=== PATIENT | female | born 1975 | race American Indian/Alaskan Native ===

== ENCOUNTER 2016-10-19 09:49 | Emergency (ER) | payer BC ==
[2016-10-19 09:49] VITALS: BMI 29.7
[2016-10-19 10:51] VITALS: TEMP 98.2
[2016-10-19] MEDS ORDERED: Sodium Chloride 0.9% 1,000 ML IV STA (10:59)
[2016-10-19 11:17] LABS: ADD MANUAL DIFF? NO
[2016-10-19 11:23] VITALS: RESP 18
[2016-10-19 11:25] LABS: URINE BILIRUBIN NEGATIVE (NEGATIVE); URINE BLOOD LARGE (NEGATIVE); URINE GLUCOSE (UA) NEGATIVE (NEGATIVE); URINE KETONE NEGATIVE (NEGATIVE); URINE LEUKOCYTE ESTERASE NEGATIVE Leu/uL (NEGATIVE); URINE PROTEIN TRACE mg/dL (<30 mg/dL); URINE UROBILINOGEN 0.2 E.U./dL (<1 E.U./dL)
[2016-10-19 11:26] LABS: URINE APPEARANCE CLEAR (CLEAR); URINE COLOR YELLOW (YELLOW)
[2016-10-19 11:28] LABS: BASO # 0.03 K/mm3 (0.0-2.0); BASO % 0.5 % (0.0-3.0); EOS # 0.1 (0.0-0.7); EOS % 0.9 % (1.5-5.0); GRAN # 4.53 (1.4-6.5); GRAN % 70.6 % (50.0-68.0); LYMPH # 1.4 (1.2-3.4); MEAN CELL VOLUME 93.1 fL (80.0-105.0); MEAN CORPUSCULAR HEMOGLOBIN 31.1 pg (25.0-35.0); MEAN CORPUSCULAR HGB CONC 33.4 g/dl (31.0-37.0); MEAN PLATELET VOLUME 9.9 fl (7.0-11.0); MONO # 0.5 (0.1-0.6); PLATELET COUNT 277 10^3/uL (120.0-450.0); RED CELL DISTRIBUTION WIDTH 13.1 % (11.5-14.5); WHITE BLOOD COUNT 6.4 10^3/ul (4.5-11.0)
--- NOTE | 2016-10-19 11:34 | ED PDOC ---
Arrival/HPI - General Chief Complaint: Cough, Cold, Congestion Time Seen by Provider: 10/19/16 09:55 Historian: Patient - History of Present Illness Narrative History of Present Illness (Text): 10/19/16 11:31 41 year old female whose past medical history includes fibroids presents to the emergency department with suprapubic pain described as cramping today. She state she had a routine appointment with her [facility] later today but could not wait due to the pain. Denies nausea, vomiting, dysuria, or fever. Patient also reports pinkish vaginal discharge and admits to unprotected sex with one partner. LMP 10/01. PMD: Dr. Monge Time/Duration: 24 hours Symptom Onset: Gradual Symptom Course: Unchanged Modifying Factors (Text): None Associated Symptoms (Text): None Past Medical History - Provider Review Nursing Documentation Reviewed: Yes - Infectious Disease Hx of Infectious Diseases: None - Tetanus Immunization Tetanus Immunization: Unknown - Past Medical History Past Medical History: No Previous - Cardiac Hx Cardiac Disorders: No - Pulmonary Hx Respiratory Disorders: No - Neurological Hx Neurological Disorder: No - HEENT Hx HEENT Disorder: No - Renal Hx Renal Disorder: No - Endocrine/Metabolic Hx Endocrine Disorders: No - Hematological/Oncological Hx Blood Disorders: No - Integumentary Hx Dermatological Disorder: No - Musculoskeletal/Rheumatological Hx Musculoskeletal Disorders: No - Gastrointestinal Hx Gastrointestinal Disorders: No - Genitourinary/Gynecological Other/Comment: FIBROIDS - Psychiatric Hx Psychophysiologic Disorder: No Hx Substance Use: No - Surgical History Other/Comment: FIBROIDECTOMY - Anesthesia Hx Anesthesia: No Hx Anesthesia Reactions: No Hx Malignant Hyperthermia: No - Suicidal Assessment Feels Threatened In Home Enviroment: No Family/Social History - Physician Review Nursing Documentation Reviewed: Yes Family/Social History: Unknown Family HX Smoking Status: Never Smoked Hx Alcohol Use: Yes Frequency of alcohol use: Socially Hx Substance Use: No Hx Substance Use Treatment: No Allergies/Home Meds Allergies/Adverse Reactions: Allergies No Known Allergies Allergy (Verified 10/19/16 10:39) Home Medications: Home Meds Medication Instructions Recorded Confirmed Naproxen [Naprosyn] 500 mg PO TID PRN 10/19/16 10/19/16 Review of Systems - Physician Review All systems were reviewed & negative as marked: Yes - Review of Systems Constitutional: absent: Fevers Gastrointestinal: Abdominal Pain (suprapubic). absent: Nausea, Vomiting Genitourinary Female: Vaginal Discharge. absent: Dysuria, Frequency Physical Exam Vital Signs Reviewed: Yes Vital Signs Temp Pulse Resp BP Pulse Ox 10/19/16 13:26 66 18 106/65 97 10/19/16 12:32 68 18 107/68 97 10/19/16 11:22 70 18 105/71 100 10/19/16 10:44 98.2 F 68 16 103/69 100 Temperature: Afebrile Blood Pressure: Normal Pulse: Regular Respiratory Rate: Normal Appearance: Positive for: Well-Appearing, Non-Toxic, Comfortable Pain Distress: None Mental Status: Positive for: Alert and Oriented X 3 - Systems Exam Head: Present: Atraumatic, Normocephalic Pupils: Present: PERRL Extroacular Muscles: Present: EOMI Conjunctiva: Present: Normal Mouth: Present: Moist Mucous Membranes Neck: Present: Normal Range of Motion Respiratory/Chest: Present: Clear to Auscultation, Good Air Exchange. No: Respiratory Distress, Accessory Muscle Use Cardiovascular: Present: Regular Rate and Rhythm, Normal S1, S2. No: Murmurs Abdomen: Present: Normal Bowel Sounds. No: Tenderness, Distention, Peritoneal Signs Back: Present: Normal Inspection Upper Extremity: Present: Normal Inspection. No: Cyanosis, Edema Lower Extremity: Present: Normal Inspection. No: Edema Neurological: Present: GCS=15, CN II-XII Intact, Speech Normal Skin: Present: Warm, Dry, Normal Color. No: Rashes Psychiatric: Present: Alert, Oriented x 3, Normal Insight, Normal Concentration Medical Decision Making ED Course and Treatment: Impression: 41 year old female whose past medical history includes fibroids presents to the emergency department with suprapubic pain described as cramping today. Differential Diagnosis include but are not limited to: Plan: -- Toradol -- IV fluids -- Labs -- Reassess and disposition Prior Visits: Notes and results from previous visits were reviewed. Patient last seen in ED on 04/25/16 for abdominal pain and discharged home. Progress Notes: - Lab Interpretations Lab Results: 10/19/16 11:08 10/19/16 11:08 Lab Results 10/19/16 11:08: Beta HCG, Quant < 2.39 10/19/16 11:08: Sodium 139, Potassium 3.5 L, Chloride 104, Carbon Dioxide 27, Anion Gap 12, BUN 11, Creatinine 0.8, Est GFR ( Amer) > 60, Est GFR (Non- Af Amer) > 60, Random Glucose 91, Calcium 9.3, Total Bilirubin 1.5 H, AST 21, ALT 23, Alkaline Phosphatase 68, Total Protein 8.6 H, Albumin 4.3, Globulin 4.3 , Albumin/Globulin Ratio 1.0 L, Lipase 40 10/19/16 11:08: WBC 6.4, RBC 3.76, Hgb 11.7 L, Hct 35.0 L, MCV 93.1, MCH 31.1, MCHC 33.4, RDW 13.1, Plt Count 277, MPV 9.9, Gran % 70.6 H, Lymph % (Auto) 21.0 L, [place] % (Auto) 7.0 H, Eos % (Auto) 0.9 L, Baso % (Auto) 0.5, Gran # 4.53, Lymph # 1.4, [place] # 0.5, Eos # 0.1, Baso # 0.03 10/19/16 09:32: Urine Color Yellow, Urine Appearance Clear, Urine pH 6.0, Ur Specific [place] >= 1.030, Urine Protein Trace H, Urine Glucose (UA) Negative, Urine Ketones Negative, Urine Blood Large H, Urine Nitrate Negative, Urine Bilirubin Negative, Urine Urobilinogen 0.2, Ur Leukocyte Esterase Negative, Urine RBC 15 - 20, Urine WBC 1 - 3, Ur Epithelial Cells Many, Amorphous Sediment Few, Urine Bacteria Many, Urine Other Fiber, Urine HCG, Qual Negative - Medication Orders Current Medication Orders: Discontinued Medications Azithromycin (Zithromax) 1,000 mg PO STAT STA PRN Reason: Protocol Stop: 10/19/16 13:18 Last Admin: 10/19/16 13:34 Dose: 1,000 mg Ceftriaxone Sodium (Rocephin) 250 mg IM STAT STA PRN Reason: Protocol Stop: 10/19/16 13:17 Last Admin: 10/19/16 13:34 Dose: 250 mg Sodium Chloride (Sodium Chloride 0.9%) 1,000 mls @ 1,000 mls/hr IV .Q1H STA Stop: 10/19/16 11:58 Last Admin: 10/19/16 11:13 Dose: 1,000 mls/hr Ketorolac Tromethamine (Toradol) 30 mg IVP STAT STA Stop: 10/19/16 11:20 Last Admin: 10/19/16 11:39 Dose: 30 mg Lidocaine HCl (Lidocaine 1% (20ml)) Confirm Administered Dose 20 ml .ROUTE .STK- MED ONE Stop: 10/19/16 13:34 - Scribe Statement The provider has reviewed the documentation as recorded by the Berna Ash Provider Scribe Attestation: All medical record entries made by the Ritaibyael were at my direction and personally dictated by me. I have reviewed the chart and agree that the record accurately reflects my personal performance of the history, physical exam, medical decision making, and the department course for this patient. I have also personally directed, reviewed, and agree with the discharge instructions and disposition. Disposition/Present on Arrival - Present on Arrival Any Indicators Present on Arrival: No History of DVT/PE: No History of Uncontrolled Diabetes: No Urinary Catheter: No History of Decub. Ulcer: No History Surgical Site Infection Following: None - Disposition Have Diagnosis and Disposition been Completed?: Yes Diagnosis: UTI (urinary tract infection), High risk sexual behavior Disposition: HOME/ ROUTINE Disposition Time: 12:20 Condition: IMPROVED Discharge Instructions (ExitCare): Safe Sex (ED), Urinary Tract Infection in Women (GEN) Additional Instructions: Thank you for letting us take care of you today. Your provider was Dr. Ibarra. You were treated for a urinary tract infection. The emergency medical care you received today was directed at your acute symptoms. If you were prescribed any medication, please fill it and take as directed. It may take several days for your symptoms to resolve. Return to the Emergency Department if your symptoms worsen, do not improve, or if you have any other problems. Please contact your doctor or call one of the physicians/clinics you have been referred to that are listed on the Patient Visit Information form that is included in your discharge packet. Bring any paperwork you were given at discharge with you along with any medications you are taking to your follow up visit. Our treatment cannot replace ongoing medical care by a primary care provider (PCP) outside of the emergency department. Thank you for allowing the [facility] team to be part of your care today. You had a urine culture: It will take several days for the results, if any change in treatment is needed we will contact you. You had an STI test: It will take 48 hours for the results. Please call after 1 week if you have not heard back. Follow up with your [facility] doctor as scheduled and your primary doctor in 3-4 days. Prescriptions: Cyclobenzaprine [Cyclobenzaprine HCl] 10 mg PO Q8 PRN #20 tab PRN Reason: Muscle Spasm Nitrofurantoin Macrocrystals [Macrobid] 100 mg PO BID #10 cap Referrals: Modesto Monge MD [Primary Care Provider] - Follow up with primary
[2016-10-19 11:37] LABS: ALKALINE PHOSPHATASE 68 U/L (38-133); ALT/SGPT 23 U/L (7-56); AST/SGOT 21 U/L (15-39); BILIRUBIN,TOTAL 1.5 mg/dL (0.2-1.3); BLOOD UREA NITROGEN 11 mg/dL (7-21); CALCIUM 9.3 mg/dL (8.4-10.5); CARBON DIOXIDE 27 mmol/L (21-33); CHLORIDE 104 mmol/L (98-107); GFR AFRICAN-AMERICAN > 60; GLUCOSE,RANDOM 91 mg/dL (70-110); LIPASE 40 U/L (23-300); POTASSIUM 3.5 mmol/L (3.6-5.0); SODIUM 139 mmol/L (132-148); TOTAL PROTEIN 8.6 g/dL (5.8-8.3)
[2016-10-19 11:39] LABS: URINE AMORPHOUS SEDIMENT FEW; URINE BACTERIA MANY (NEG); URINE EPITHELIAL CELLS MANY /hpf (0-5); URINE RBC 15 - 20 /hpf (0-2)
[2016-10-19 12:32] VITALS: O2SAT 97
[2016-10-19] MEDS ORDERED: cefTRIAXone (Rocephin) 250 mg Inj IM STA (13:16)
[2016-10-19 13:26] VITALS: BP 106/65; PULSE 66
[2016-10-19] MEDS ORDERED: Lidocaine 1% Inj (20ml) ONE (13:33)
== END 2016-10-19 13:39 | disposition home or self-care (01) ==
LOC: ED 09:49
DX: N39.0 Urinary tract infection, site not specified (principal); Z72.51 High risk heterosexual behavior
CPT/HCPCS: 80053; 81001; 83690; 84702; 84703; 85025; 87086; 87491; 87591; 96372; 96374; 99283; J0696; J1885; J7040

== ENCOUNTER 2017-02-18 10:51 | Emergency (ER) | payer BC ==
[2017-02-18 10:54] VITALS: BMI 29.0
--- NOTE | 2017-02-18 11:21 | ED PDOC ---
Arrival/HPI - General Chief Complaint: Abdominal Pain Time Seen by Provider: 02/18/17 11:07 Historian: Patient - History of Present Illness Narrative History of Present Illness (Text): 02/18/17 11:10 A 41 year old female, whose past medical history includes fibroids, presents to the emergency department complaining of intermittent suprapubic pain for 3-4 days. Patient reports pain normally last for a second and goes away, and describes the pains as "contraction-like". Also, patient mentions having her fibroids removed 4-5 months ago. Patient notes experiencing vaginal irritation and odor, but denies of any fever, chest pain, shortness of breath, cough, vaginal discharge, dysuria, nausea vomiting, or any other complaints. Patient mentions she took Percocet last night prescribed to her after breast surgery. PMD: Dr. Promise Dennis Time/Duration: > week (3-4 days) Quality: Cramping, Other ("contraction-like") Past Medical History - Provider Review Nursing Documentation Reviewed: Yes - Infectious Disease Hx of Infectious Diseases: None - Tetanus Immunization Tetanus Immunization: Unknown - Past Medical History Past Medical History: No Previous - Cardiac Hx Cardiac Disorders: No - Pulmonary Hx Respiratory Disorders: No - Neurological Hx Neurological Disorder: No - HEENT Hx HEENT Disorder: No - Renal Hx Renal Disorder: No - Endocrine/Metabolic Hx Endocrine Disorders: No - Hematological/Oncological Hx Blood Disorders: No - Integumentary Hx Dermatological Disorder: No - Musculoskeletal/Rheumatological Hx Musculoskeletal Disorders: No - Gastrointestinal Hx Gastrointestinal Disorders: No - Genitourinary/Gynecological Hx Genitourinary Disorders: Yes Other/Comment: FIBROIDS - Psychiatric Hx Psychophysiologic Disorder: No Hx Substance Use: No - Surgical History Other/Comment: FIBROIDECTOMY. Breast surgery - Anesthesia Hx Anesthesia: Yes Hx Anesthesia Reactions: No Hx Malignant Hyperthermia: No - Suicidal Assessment Feels Threatened In Home Enviroment: No Family/Social History - Physician Review Nursing Documentation Reviewed: Yes Family/Social History: Other (nc) Smoking Status: Never Smoked Hx Alcohol Use: Yes Hx Substance Use: No Hx Substance Use Treatment: No Allergies/Home Meds Allergies/Adverse Reactions: Allergies No Known Allergies Allergy (Verified 02/18/17 10:54) Home Medications: Home Meds Medication Instructions Recorded Confirmed Oxycodone HCl/Acetaminophen 1 tab PO PRN PRN 02/18/17 02/18/17 [Percocet 10-325 mg Tablet] Review of Systems - Review of Systems Constitutional: absent: Fevers Respiratory: absent: SOB, Cough Cardiovascular: absent: Chest Pain Gastrointestinal: Abdominal Pain. absent: Nausea, Vomiting, Appetite Changes Genitourinary Female: Other (vaginal irritation and odor). absent: Dysuria, Vaginal Discharge Physical Exam Vital Signs Reviewed: Yes Vital Signs Temp Pulse Resp BP Pulse Ox 02/18/17 10:58 97.9 F 75 18 99/67 L 99 Appearance: Positive for: Well-Appearing, Non-Toxic, Comfortable Pain Distress: None Mental Status: Positive for: Alert and Oriented X 3 - Systems Exam Head: Present: Atraumatic Pupils: Present: PERRL Mouth: Present: Moist Mucous Membranes Neck: Present: Normal Range of Motion Respiratory/Chest: Present: Clear to Auscultation. No: Respiratory Distress, Accessory Muscle Use Cardiovascular: Present: Regular Rate and Rhythm Abdomen: No: Tenderness, Distention Genitourinary/Pelvic Exam: Present: Other (no fb. RN Teagan present for exam.). No: Vaginal Bleeding, Vaginal Lesions, Cervical Motion Tendernes Neurological: Present: GCS=15, Motor Func Grossly Intact, Normal Sensory Function, Other (no focal deficits) Skin: Present: Warm, Dry Psychiatric: Present: Alert, Oriented x 3 Medical Decision Making ED Course and Treatment: 02/18/17 11:44 Patient requests to be empirically treated for gonorrhea and chlamydia 02/18/17 12:41 pt resting comfortably, appears well, no distress. disc results, plan for f/u and rtr. - Lab Interpretations Lab Results: 02/18/17 11:45 02/18/17 11:45 Lab Results 02/18/17 11:45: Sodium 140, Potassium 3.4 L, Chloride 105, Carbon Dioxide 26, Anion Gap 12, BUN 12, Creatinine 0.8, Est GFR ( Amer) > 60, Est GFR (Non- Af Amer) > 60, Random Glucose 86, Calcium 8.3 L, Total Bilirubin 0.9, AST 21, ALT 18, Alkaline Phosphatase 65, Total Protein 7.3, Albumin 3.8, Globulin 3.5, Albumin/Globulin Ratio 1.1 02/18/17 11:45: WBC 5.0 D, RBC 3.66, Hgb 11.0 L, Hct 34.3 L, MCV 93.7, MCH 30.1 , MCHC 32.1, RDW 12.7, Plt Count 244, MPV 10.1, Gran % 51.1, Lymph % (Auto) 36.3 H, [place] % (Auto) 9.2 H, Eos % (Auto) 2.8, Baso % (Auto) 0.6, Gran # 2.57, Lymph # 1.8, [place] # 0.5, Eos # 0.1, Baso # 0.03 02/18/17 11:32: Urine Color Yellow, Urine Appearance Clear, Urine pH 6.0, Ur Specific [place] 1.025, Urine Protein Trace H, Urine Glucose (UA) Negative, Urine Ketones Negative, Urine Blood Small H, Urine Nitrate Negative, Urine Bilirubin Negative, Urine Urobilinogen 0.2, Ur Leukocyte Esterase Negative, Urine RBC 0 - 2, Urine WBC 0 - 2, Ur Epithelial Cells 1 - 3, Urine Bacteria Small, Urine HCG, Qual Negative - RAD Interpretation Radiology Orders: 02/18/17 11:21 TRANSVAGINAL [US] Stat - Medication Orders Current Medication Orders: Discontinued Medications Azithromycin (Zithromax) 1,000 mg PO STAT STA PRN Reason: Protocol Stop: 02/18/17 11:43 Last Admin: 02/18/17 11:51 Dose: 1,000 mg Ceftriaxone Sodium (Rocephin 1 Gram Ivpb) 1 gm in 100 mls @ 200 mls/hr IVPB STAT STA PRN Reason: Protocol Stop: 02/18/17 12:40 Last Admin: 02/18/17 12:19 Dose: 200 mls/hr eMAR Start Stop Document 02/18/17 12:19 AB (Rec: 02/18/17 12:20 AB [id number]) Intravenous Solution Start Date 02/18/17 Start Time 12:20 End Date 02/18/17 End time 12:50 Total Infusion Time 30 Ketorolac Tromethamine (Toradol) 10 mg IVP STAT STA Stop: 02/18/17 11:22 Last Admin: 02/18/17 11:50 Dose: 10 mg MAR Pain Assessment Document 02/18/17 11:50 AB (Rec: 02/18/17 11:51 AB [id number]) Pain Reassessment Is this a pain reassessment? Yes Sleep Is patient sleeping during reassessment? No Presence of Pain Presence of Pain Yes Pain Scale Used Pain Scale Used Numeric Location Left, Right or Bilateral Bilateral Upper or Lower Lower Pain Location Body Site Abdomen Description Description Cramping Pain Behavior Rubbing Site Alleviating Factors/Management Medication Techniques Alleviating Factors Medication IVP Administration Document 02/18/17 11:50 AB (Rec: 02/18/17 11:51 AB [id number]) Charges for Administration # of IVP Administrations 1 - Scribe Statement The provider has reviewed the documentation as recorded by the Scribe Noah Chang Provider Scribe Attestation: All medical record entries made by the Scribe were at my direction and personally dictated by me. I have reviewed the chart and agree that the record accurately reflects my personal performance of the history, physical exam, medical decision making, and the department course for this patient. I have also personally directed, reviewed, and agree with the discharge instructions and disposition. Disposition/Present on Arrival - Present on Arrival Any Indicators Present on Arrival: No History of DVT/PE: No History of Uncontrolled Diabetes: No Urinary Catheter: No History of Decub. Ulcer: No History Surgical Site Infection Following: None - Disposition Have Diagnosis and Disposition been Completed?: Yes Diagnosis: Bilateral lower abdominal cramping Disposition: HOME/ ROUTINE Disposition Time: 12:41 Patient Problems: Current Active Problems Problem Status Onset Bilateral lower abdominal cramping Acute Condition: GOOD Discharge Instructions (ExitCare): Abdominal Pain (ED), Uterine Fibroids (ED) Additional Instructions: Please follow up with your OBGYN doctor. Return to the ER for any worsening symptoms, fever, vomiting, or for any other concerns. Referrals: Promise Dennis MD [Primary Care Provider] - Follow up with primary Forms: virocyt (Portuguese)
[2017-02-18 11:42] LABS: URINE BILIRUBIN NEGATIVE (NEGATIVE); URINE BLOOD SMALL (NEGATIVE); URINE GLUCOSE (UA) NEGATIVE (NEGATIVE); URINE KETONE NEGATIVE (NEGATIVE); URINE LEUKOCYTE ESTERASE NEGATIVE Leu/uL (NEGATIVE); URINE PROTEIN TRACE mg/dL (<30 mg/dL); URINE UROBILINOGEN 0.2 E.U./dL (<1 E.U./dL)
[2017-02-18 11:46] LABS: URINE APPEARANCE CLEAR (CLEAR); URINE COLOR YELLOW (YELLOW)
[2017-02-18 11:52] LABS: BASO # 0.03 K/mm3 (0.0-2.0); BASO % 0.6 % (0.0-3.0); EOS # 0.1 (0.0-0.7); EOS % 2.8 % (1.5-5.0); GRAN # 2.57 (1.4-6.5); GRAN % 51.1 % (50.0-68.0); HEMATOCRIT 34.3 % (36.0-48.0); LYMPH # 1.8 (1.2-3.4); LYMPH % 36.3 % (22.0-35.0); MEAN CELL VOLUME 93.7 fl (80.0-105.0); MEAN CORPUSCULAR HEMOGLOBIN 30.1 pg (25.0-35.0); MEAN CORPUSCULAR HGB CONC 32.1 g/dl (31.0-37.0); MEAN PLATELET VOLUME 10.1 fl (7.0-11.0); MONO # 0.5 (0.1-0.6); MONO % 9.2 % (1.0-6.0); RED CELL DISTRIBUTION WIDTH 12.7 % (11.5-14.5)
[2017-02-18 11:54] LABS: URINE RBC 0 - 2 /hpf (0-2); URINE WBC 0 - 2 /hpf (0-6)
[2017-02-18 11:55] LABS: URINE BACTERIA SMALL (NEG)
[2017-02-18 12:01] LABS: ALB/GLOB RATIO 1.1 (1.1-1.8); ALKALINE PHOSPHATASE 65 U/L (38-126); ALT/SGPT 18 U/L (7-56); AST/SGOT 21 U/L (14-36); BILIRUBIN,TOTAL 0.9 mg/dL (0.2-1.3); BLOOD UREA NITROGEN 12 mg/dL (7-21); CALCIUM 8.3 mg/dL (8.4-10.5); CARBON DIOXIDE 26 mmol/L (21-33); CHLORIDE 105 mmol/L (98-107); GFR AFRICAN-AMERICAN > 60; GLUCOSE,RANDOM 86 mg/dL (70-110); POTASSIUM 3.4 mmol/L (3.6-5.0); SODIUM 140 mmol/L (132-148); TOTAL PROTEIN 7.3 g/dL (5.8-8.3)
[2017-02-18] MEDS ORDERED: cefTRIAXone 1 gm 1 GM/100 ML BAG IVPB STA (12:11)
--- NOTE | 2017-02-18 12:36 | US ---
HISTORY: Lower abdominal pain COMPARISON: 12/19/2015. TECHNIQUE: Transvaginal pelvic ultrasound was performed. FINDINGS: UTERUS: Measures 8.9 x 4.5 x 4.6 cm. Anteverted, normal in size and appearance. There is a 3.3 x 2.9 x 2.5 cm posterior wall subserosal fibroid in the midbody of the uterus. ENDOMETRIUM: Measures 5.0 mm in diameter. Unremarkable. CERVIX: There is a small nabothian cyst in the cervix. RIGHT OVARY: Measures 1.8 x 1.3 x 1.4 cm. No solid mass. Normal flow. LEFT OVARY: Measures 2.4 x 1.4 x 2.1 cm. No solid mass. Normal flow. FREE FLUID: No significant free fluid noted. OTHER FINDINGS: None. IMPRESSION: 3.3 x 2.9 x 2.5 cm posterior wall subserosal fibroid in the midbody of the uterus. No ovarian cyst or adnexal mass.
[2017-02-18 13:05] VITALS: BP 130/82; PULSE 80; RESP 100; TEMP 98.6; O2SAT 100
== END 2017-02-18 13:03 | disposition home or self-care (01) ==
LOC: ED 10:51
DX: R10.32 Left lower quadrant pain (principal); R10.31 Right lower quadrant pain
CPT/HCPCS: 76830; 80053; 81001; 84703; 85025; 87491; 87591; 96365; 96375; 99283; J0696; J1885

== ENCOUNTER 2017-05-14 07:01 | Emergency (ER) | payer BC ==
[2017-05-14 07:12] VITALS: RESP 17; TEMP 97.9; O2SAT 100
[2017-05-14 07:13] VITALS: BMI 29.5
[2017-05-14] MEDS ORDERED: Sodium Chloride 0.9% 1,000 ML IV STA (07:25)
--- NOTE | 2017-05-14 07:32 | ED PDOC ---
Arrival/HPI - General Time Seen by Provider: 05/14/17 07:25 Historian: Patient - History of Present Illness Narrative History of Present Illness (Text): 05/14/17 07:28 A 41 year old female, whose past medical history includes uterine fibroids, presents to the emergency department for cramping menstrual pain for the past 2 days. The patient reports that nothing makes it worse or better e.g sex, eating , medications. The patient denies nausea, vomiting, diarrhea, fever, dysuria, dyspareunia, or any other complaints at this time. The patient notes her last bowel movement was 2 days ago, but she states that is baseline for her. Time/Duration: < week (2 days ) Symptom Onset: Sudden Symptom Course: Unchanged Quality: Cramping Activities at Onset: Rest, Light Context: Home Past Medical History - Provider Review Nursing Documentation Reviewed: Yes - Infectious Disease Hx of Infectious Diseases: None - Tetanus Immunization Tetanus Immunization: Unknown - Past Medical History Past Medical History: No Previous - Cardiac Hx Cardiac Disorders: No - Renal Hx Renal Disorder: No - Endocrine/Metabolic Hx Endocrine Disorders: No - Integumentary Hx Dermatological Disorder: No - Psychiatric Hx Substance Use: No - Surgical History Other/Comment: FIBROIDECTOMY. Breast surgery - Anesthesia Hx Anesthesia: Yes Hx Anesthesia Reactions: No Hx Malignant Hyperthermia: No - Suicidal Assessment Feels Threatened In Home Enviroment: No Family/Social History - Physician Review Nursing Documentation Reviewed: Yes Family/Social History: No Known Family HX Smoking Status: Never Smoked Hx Alcohol Use: Yes Hx Substance Use: No Hx Substance Use Treatment: No Allergies/Home Meds Allergies/Adverse Reactions: Allergies No Known Allergies Allergy (Verified 05/14/17 07:44) Home Medications: Home Meds Medication Instructions Recorded Confirmed No Known Home Med 05/14/17 05/14/17 Review of Systems - Physician Review All systems were reviewed & negative as marked: Yes - Review of Systems Constitutional: absent: Fevers Gastrointestinal: absent: Diarrhea, Nausea, Vomiting Genitourinary Female: absent: Dysuria, Other (dyspareunia ) Musculoskeletal: Other (bilateral pelvic menstrual cramps ) Physical Exam Vital Signs Reviewed: Yes Vital Signs Temp Pulse Resp BP Pulse Ox 05/14/17 10:54 61 17 114/63 100 05/14/17 07:11 97.9 F 65 17 131/90 100 Temperature: Afebrile Blood Pressure: Normal Pulse: Regular Respiratory Rate: Normal Appearance: Positive for: Well-Appearing, Non-Toxic, Comfortable Pain Distress: None Mental Status: Positive for: Alert and Oriented X 3 - Systems Exam Head: Present: Atraumatic, Normocephalic Pupils: Present: PERRL Extroacular Muscles: Present: EOMI Conjunctiva: Present: Normal Mouth: Present: Moist Mucous Membranes Neck: Present: Normal Range of Motion Respiratory/Chest: Present: Clear to Auscultation, Good Air Exchange. No: Respiratory Distress, Accessory Muscle Use Cardiovascular: Present: Regular Rate and Rhythm, Normal S1, S2. No: Murmurs Abdomen: Present: Normal Bowel Sounds. No: Tenderness, Distention, Peritoneal Signs Genitourinary/Pelvic Exam: Present: Vaginal Bleeding (currently menstrual cycle) , Adenexal Mass (right adnexal ) Back: Present: Normal Inspection Upper Extremity: Present: Normal Inspection. No: Cyanosis, Edema Lower Extremity: Present: Normal Inspection. No: Edema Neurological: Present: GCS=15, CN II-XII Intact, Speech Normal Skin: Present: Warm, Dry, Normal Color. No: Rashes Psychiatric: Present: Alert, Oriented x 3, Normal Insight, Normal Concentration Medical Decision Making ED Course and Treatment: 05/14/17 07:25 Impression: A 41 year old female with menstrual cramps. Differential Diagnosis included but are not limited to: UTI vs. Ovarian cyst vs. 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 u/s (+) for b/l ovarian cysts /fibroid uterus likley causing her discomfort . 05/14/17 11:15 I preformed a pelvic exam on the patient, chaperoned by EMT Alannah. Findings show a right sided adnexal. - Lab Interpretations Lab Results: 05/14/17 07:40 05/14/17 07:40 Lab Results 05/14/17 07:40: Urine Color Yellow, Urine Appearance Clear, Urine pH 6.0, Ur Specific [place] >= 1.030, Urine Protein Negative, Urine Glucose (UA) Negative, Urine Ketones Negative, Urine Blood Trace-intact H, Urine Nitrate Negative, Urine Bilirubin Negative, Urine Urobilinogen 0.2, Ur Leukocyte Esterase Negative , Urine RBC 0 - 2, Urine WBC 0 - 2, Ur Epithelial Cells 1 - 3, Urine HCG, Qual Negative 05/14/17 07:40: Sodium 141, Potassium 3.6, Chloride 106, Carbon Dioxide 27, Anion Gap 12, BUN 12, Creatinine 0.8, Est GFR ( Amer) > 60, Est GFR (Non- Af Amer) > 60, Random Glucose 90, Calcium 8.5, Total Bilirubin 0.6, AST 28, ALT 22, Alkaline Phosphatase 70, Total Protein 7.4, Albumin 3.7, Globulin 3.7, Albumin/Globulin Ratio 1.0 L, Lipase 58 05/14/17 07:40: PT 12.4, INR 1.12 H, APTT 28.9 05/14/17 07:40: WBC 6.4 D, RBC 3.63, Hgb 10.9 L, Hct 34.2 L, MCV 94.2, MCH 30.0 , MCHC 31.9, RDW 12.7, Plt Count 260, MPV 10.0, Gran % 61.3, Lymph % (Auto) 28.4 , [place] % (Auto) 8.0 H, Eos % (Auto) 2.0, Baso % (Auto) 0.3, Gran # 3.92, Lymph # 1.8, [place] # 0.5, Eos # 0.1, Baso # 0.02 - RAD Interpretation Radiology Orders: 05/14/17 07:25 ABDOMEN MULTIPLE VIEW (w/OBL) [RAD] Stat 05/14/17 07:27 TRANSVAGINAL [US] Stat 05/14/17 09:57 obstructive [ABD 2 VIEWS (FLAT/UP OR DECUB)] [RAD] Stat - Medication Orders Current Medication Orders: Discontinued Medications Sodium Chloride (Sodium Chloride 0.9%) 1,000 mls @ 1,000 mls/hr IV .Q1H STA Stop: 05/14/17 08:24 Last Admin: 05/14/17 07:43 Dose: 1,000 mls/hr eMAR Start Stop Document 05/14/17 07:43 MR (Rec: 05/14/17 07:44 [id number]) Intravenous Solution Start Date 05/14/17 Start Time 07:44 End Date 05/14/17 End time 08:44 Total Infusion Time 60 Ketorolac Tromethamine (Toradol) 30 mg IVP STAT STA Stop: 05/14/17 08:13 Last Admin: 05/14/17 08:18 Dose: 30 mg MAR Pain Assessment Document 05/14/17 08:18 (Rec: 05/14/17 08:18 MR [id number]) Pain Reassessment Is this a pain reassessment? No Sleep Is patient sleeping during reassessment? No Presence of Pain Presence of Pain Yes Pain Scale Used Pain Scale Used Numeric Location Left, Right or Bilateral Bilateral Upper or Lower Lower Pain Location Body Site Abdomen Description Description Cramping Intensity of Pain at present 8 Alleviating Factors/Management Medication Techniques Alleviating Factors Medication IVP Administration Document 05/14/17 08:18 (Rec: 05/14/17 08:18 MR [id number]) Charges for Administration # of IVP Administrations 1 - Scribe Statement The provider has reviewed the documentation as recorded by the Ritaibyael Chanel Provider Scribe Attestation: All medical record entries made by the Scribe were at my direction and personally dictated by me. I have reviewed the chart and agree that the record accurately reflects my personal performance of the history, physical exam, medical decision making, and the department course for this patient. I have also personally directed, reviewed, and agree with the discharge instructions and disposition. Disposition/Present on Arrival - Present on Arrival Any Indicators Present on Arrival: No History of DVT/PE: No History of Uncontrolled Diabetes: No Urinary Catheter: No History Surgical Site Infection Following: None - Disposition Diagnosis: Fibroid uterus, Ovarian cyst Disposition: HOME/ ROUTINE Disposition Time: 11:08 Patient Plan: Discharge Patient Problems: Current Active Problems Problem Status Onset Fibroid uterus Acute Ovarian cyst Acute Discharge Instructions (ExitCare): Ovarian Cyst (ED), Uterine Fibroids (DC) Print Language: BURKIN[place] Additional Instructions: You were diagnosed with b/l ovarian cysts larger on the right . As well as fibroid uterus. All documented on your ultrasound report. These cyst will likley recede with your cycle AD ARE CHARCTAERIZED SIMPLE AND BENIGN.. Take the pain medicine as needed, and followup with your regular pmd for worsening symptoms. If yur pain is without control or associated with intractable vomiting then please return urgently to Ed for further evaluation . Referrals: Promise Dennis MD [Primary Care Provider] - Follow up with primary
[2017-05-14 07:53] LABS: URINE BILIRUBIN NEGATIVE (NEGATIVE); URINE BLOOD TRACE-INTACT (NEGATIVE); URINE GLUCOSE (UA) NEGATIVE (NEGATIVE); URINE KETONE NEGATIVE (NEGATIVE); URINE LEUKOCYTE ESTERASE NEGATIVE Leu/uL (NEGATIVE); URINE PROTEIN NEGATIVE mg/dL (<30 mg/dL); URINE UROBILINOGEN 0.2 E.U./dL (<1 E.U./dL)
[2017-05-14 07:55] LABS: BASO # 0.02 K/mm3 (0.0-2.0); BASO % 0.3 % (0.0-3.0); EOS # 0.1 (0.0-0.7); GRAN # 3.92 (1.4-6.5); GRAN % 61.3 % (50.0-68.0); HEMATOCRIT 34.2 % (36.0-48.0); LYMPH # 1.8 (1.2-3.4); LYMPH % 28.4 % (22.0-35.0); MEAN CELL VOLUME 94.2 fl (80.0-105.0); MEAN CORPUSCULAR HGB CONC 31.9 g/dl (31.0-37.0); MONO # 0.5 (0.1-0.6); RED CELL DISTRIBUTION WIDTH 12.7 % (11.5-14.5); WHITE BLOOD COUNT 6.4 10^3/ul (4.5-11.0)
[2017-05-14 08:04] LABS: ALKALINE PHOSPHATASE 70 U/L (38-126); ALT/SGPT 22 U/L (7-56); AST/SGOT 28 U/L (14-36); BILIRUBIN,TOTAL 0.6 mg/dL (0.2-1.3); BLOOD UREA NITROGEN 12 mg/dL (7-21); CALCIUM 8.5 mg/dL (8.4-10.5); CARBON DIOXIDE 27 mmol/L (21-33); CHLORIDE 106 mmol/L (98-107); GFR AFRICAN-AMERICAN > 60; GLUCOSE,RANDOM 90 mg/dL (70-110); LIPASE 58 U/L (23-300); POTASSIUM 3.6 mmol/L (3.6-5.0); SODIUM 141 mmol/L (132-148); TOTAL PROTEIN 7.4 g/dL (5.8-8.3)
[2017-05-14 08:16] LABS: INR 1.12 (0.93-1.08)
[2017-05-14 08:17] LABS: PARTIAL THROMBOPLASTIN TIME 28.9 Seconds (25.1-36.5)
[2017-05-14 08:52] LABS: URINE APPEARANCE CLEAR (CLEAR); URINE COLOR YELLOW (YELLOW); URINE RBC 0 - 2 /hpf (0-2); URINE WBC 0 - 2 /hpf (0-6)
--- NOTE | 2017-05-14 10:39 | US ---
HISTORY: crampy menstrual like pain/ hx of fobroids COMPARISON: None available. TECHNIQUE: Transvaginal FINDINGS: UTERUS: Measures 8.4 x 4.47 x 4.86 cm. Normal in size and appearance. 3 cm sub serosal fibroid along the mid posterior wall. ENDOMETRIUM: Measures 3.5 mm in diameter. Unremarkable. CERVIX: No cervical abnormality identified. RIGHT OVARY: Measures 3.66 x 2.77 x 3.17 cm. No solid mass. Normal flow. There is a cyst measuring 1.77 x 1.48 x 2.20 LEFT OVARY: Measures 2.36 x 1.45 x 2.05 cm. No solid mass. Normal flow. Cyst measuring 0.52 x 0.41 x 0.68 cm FREE FLUID: Small amount of free fluid OTHER FINDINGS: None. IMPRESSION: Bilateral ovarian cysts. Small amount of fluid in the cul-de-sac. 3 cm sub serosal fibroid
[2017-05-14 10:55] VITALS: PULSE 61
[2017-05-14 12:33] VITALS: BP 107/74
--- NOTE | 2017-05-14 13:17 | RAD ---
HISTORY: examine gas pattern COMPARISON: No prior. FINDINGS: BOWEL: Normal. No obstruction. No free air. BONES: Normal. OTHER FINDINGS: None. IMPRESSION: No active disease.
== END 2017-05-14 12:34 | disposition home or self-care (01) ==
LOC: ED 07:01
DX: D25.9 Leiomyoma of uterus, unspecified (principal); N83.202 Unspecified ovarian cyst, left side; N83.201 Unspecified ovarian cyst, right side
CPT/HCPCS: 74020; 76830; 80053; 81001; 83690; 84703; 85025; 85610; 85730; 87086; 96361; 96374; 99284; J1885; J7040

== ENCOUNTER 2017-08-20 19:28 | Emergency (ER) | payer BC ==
[2017-08-20 19:29] VITALS: BMI 29.5
--- NOTE | 2017-08-20 19:58 | ED PDOC ---
Arrival/HPI - General Time Seen by Provider: 08/20/17 19:48 - History of Present Illness Narrative History of Present Illness (Text): 08/20/17 19:54 Patient is a 42F with a PMH of uterine fibroids who comes to the ED after having unprotected intercourse with someone know to have gonnorrhea/chlamydia. Patient has been having foul smelling, white-pinkish discharge. Patient just completed her menstrual period which was w/o pain. Patient denies any fever, chills, nausea, vomiting, diarrhea or constipation. Patient has no other complaints at this time. (Riley Diaz) Past Medical History - Infectious Disease Hx of Infectious Diseases: None - Tetanus Immunization Tetanus Immunization: Unknown - Past Medical History Past Medical History: No Previous - Cardiac Hx Cardiac Disorders: No - Renal Hx Renal Disorder: No - Endocrine/Metabolic Hx Endocrine Disorders: No - Integumentary Hx Dermatological Disorder: No - Psychiatric Hx Substance Use: No - Surgical History Hx Breast Biopsy: (CYST REMOVED) Other/Comment: FIBROIDECTOMY. Breast surgery - Anesthesia Hx Anesthesia: Yes Hx Anesthesia Reactions: No Hx Malignant Hyperthermia: No - Suicidal Assessment Feels Threatened In Home Enviroment: No Family/Social History Family/Social History: Unknown Family HX Smoking Status: Never Smoked Hx Alcohol Use: No Hx Substance Use: No Hx Substance Use Treatment: No Allergies/Home Meds Allergies/Adverse Reactions: Allergies No Known Allergies Allergy (Verified 08/20/17 20:02) Home Medications: Home Meds Medication Instructions Recorded Confirmed No Known Home Med 08/20/17 08/20/17 Review of Systems - Review of Systems Constitutional: Normal Eyes: Normal ENT: Normal Respiratory: Normal Cardiovascular: Normal Gastrointestinal: Normal, Other (mestural cramps) Genitourinary Female: Vaginal Discharge (foul smelling pink white). absent: Dysuria, Frequency, Hematuria, Vaginal Bleeding Musculoskeletal: Normal Skin: Normal Neurological: Normal Endocrine: Normal Hemo/Lymphatic: Normal Psychiatric: Normal Physical Exam Temperature: Afebrile Blood Pressure: Normal Pulse: Regular Respiratory Rate: Normal Appearance: Positive for: Well-Appearing, Non-Toxic, Comfortable Mental Status: Positive for: Alert and Oriented X 3 - Systems Exam Head: Present: Atraumatic, Normocephalic Pupils: Present: PERRL Extroacular Muscles: Present: EOMI Conjunctiva: Present: Normal Ears: Present: Normal Mouth: Present: Moist Mucous Membranes Neck: Present: Normal Range of Motion Respiratory/Chest: Present: Clear to Auscultation, Good Air Exchange. No: Respiratory Distress, Accessory Muscle Use Cardiovascular: Present: Regular Rate and Rhythm, Normal S1, S2. No: Murmurs Abdomen: Present: Normal Bowel Sounds. No: Tenderness, Distention, Peritoneal Signs Genitourinary/Pelvic Exam: Present: Vaginal Discharge (fould smelling pink whitish discharge) Upper Extremity: Present: Normal Inspection. No: Cyanosis, Edema Lower Extremity: Present: Normal Inspection. No: Edema Neurological: Present: GCS=15, CN II-XII Intact, Speech Normal Skin: Present: Warm, Dry, Normal Color. No: Rashes Psychiatric: Present: Alert, Oriented x 3, Normal Insight, Normal Concentration Vital Signs Temp Pulse Resp BP Pulse Ox 08/20/17 20:00 98.3 F 77 18 112/75 100 Medical Decision Making ED Course and Treatment: 08/20/17 19:58 will test of GC. UA. Treat with azithro and rocephin (Riley Diaz) 08/20/17 20:40 Patient Seen With Resident: In agreement with resident note which contains more details about the patient. Patient was seen and evaluated with resident. Came up with plan and treatment together. (Emanuel Hull) - Lab Interpretations Lab Results: Lab Results 08/20/17 20:00: Urine Color Yellow, Urine Appearance Sl cloudy, Urine pH 8.0, Ur Specific [place] 1.015, Urine Protein Negative, Urine Glucose (UA) Negative, Urine Ketones Trace H, Urine Blood Negative, Urine Nitrate Negative, Urine Bilirubin Negative, Urine Urobilinogen 0.2, Ur Leukocyte Esterase Negative - Medication Orders Current Medication Orders: Discontinued Medications Azithromycin (Zithromax) 1,000 mg PO STAT STA PRN Reason: Protocol Stop: 08/20/17 20:04 Last Admin: 08/20/17 20:37 Dose: 1,000 mg Ceftriaxone Sodium (Rocephin) 250 mg IM STAT STA PRN Reason: Protocol Stop: 08/20/17 20:03 Last Admin: 08/20/17 20:38 Dose: 250 mg IM Administration Charges Document 08/20/17 20:38 GMD (Rec: 03/25/18 20:38 GMD [id number]) Injection Site MAR Injection Site Right Gluteus Chavez Charges for Administration # of IM Administrations 1 - PA / COMPUTING ARCHITECT / Resident Statement /DO has reviewed & agrees with the documentation as recorded. MD/DO has examined the patient and agrees with the treatment plan. Disposition/Present on Arrival - Present on Arrival Any Indicators Present on Arrival: No History of DVT/PE: No History of Uncontrolled Diabetes: No Urinary Catheter: No History Surgical Site Infection Following: None - Disposition Have Diagnosis and Disposition been Completed?: Yes Disposition Time: 20:29 Patient Plan: Discharge - Disposition Diagnosis: STD (sexually transmitted disease), Gonorrhea, Chlamydia Patient Problems: Current Active Problems Problem Status Onset Chlamydia Acute Gonorrhea Acute STD (sexually transmitted disease) Acute Condition: STABLE Additional Instructions: thank you for letting us take care of you today. Your provider was Dr. Diaz. The emergency medical care you received today was directed at your acute symptoms. If you were prescribed any medication, please fill it and take as directed. It may take several days for your symptoms to resolve. Return to the Emergency Department if your symptoms worsen, do not improve, or if you have any other problems. Please contact your doctor or call one of the physicians/clinics you have been referred to that are listed on the Patient Visit Information form that is included in your discharge packet. Bring any paperwork you were given at discharge with you along with any medications you are taking to your follow up visit. Our treatment cannot replace ongoing medical care by a primary care provider (PCP) outside of the emergency department. Thank you for allowing the [facility] team to be part of your care today. If you had an STI test: It will take 48 hours for the results. Please call after 1 week if you have not heard back. Referrals: Modesto Monge MD [Primary Care Provider] - Follow up with primary
[2017-08-20] MEDS ORDERED: cefTRIAXone (Rocephin) 250 mg Inj IM STA (20:02)
[2017-08-20 20:03] VITALS: RESP 18; TEMP 98.3
[2017-08-20 20:33] LABS: URINE BILIRUBIN NEGATIVE (NEGATIVE); URINE BLOOD NEGATIVE (NEGATIVE); URINE GLUCOSE (UA) NEGATIVE (NEGATIVE); URINE LEUKOCYTE ESTERASE NEGATIVE Leu/uL (NEGATIVE); URINE PROTEIN NEGATIVE mg/dL (<30 mg/dL); URINE UROBILINOGEN 0.2 E.U./dL (<1 E.U./dL)
[2017-08-20 20:35] LABS: URINE APPEARANCE SL CLOUDY (CLEAR); URINE COLOR YELLOW (YELLOW)
[2017-08-20 20:47] VITALS: BP 118/72; PULSE 78; O2SAT 98
== END 2017-08-20 20:46 | disposition home or self-care (01) ==
LOC: ED 19:28
DX: A56.8 Sexually transmitted chlamydial infection of other sites (principal); A54.9 Gonococcal infection, unspecified
CPT/HCPCS: 81003; 87086; 87491; 87591; 96372; 99284; J0696

== ENCOUNTER 2018-10-05 11:31 | Emergency (ER) | payer BC, OTHER ==
[2018-10-05 11:44] VITALS: BP 113/72; PULSE 76; RESP 18; TEMP 98.5; O2SAT 97; BMI 29.7
--- NOTE | 2018-10-05 11:57 | ED PDOC ---
Arrival/HPI - General Chief Complaint: Abnormal Skin Integrity Time Seen by Provider: 10/05/18 11:33 Historian: Patient - History of Present Illness Narrative History of Present Illness (Text): 10/05/18 11:59 A 43 year old female presents to the emergency department with a complaint of 3 day duration rash. Patient states that rash is to the posterior neck and upper back . She notes it has been gradually worsening and itchy. The patient has not used any medications for her symptoms. She is unsure of the cause, maybe a new detergent. The patient denies fevers, chills, headache, dizziness, chest pain, shortness of breath, dyspnea on exertion, cough, throat swelling, abdominal pain, nausea, vomiting, diarrhea, back pain, neck pain, urinary/bowel changes, or any other complaint. Time/Duration: Other (3 days) Symptom Onset: Sudden Symptom Course: Unchanged Activities at Onset: Rest, Light Context: Home Past Medical History - Provider Review Nursing Documentation Reviewed: Yes Primary Care Provider: Modesto Monge - Infectious Disease Hx of Infectious Diseases: None - Tetanus Immunization Tetanus Immunization: Unknown - Past Medical History Past Medical History: No Previous - Cardiac Hx Cardiac Disorders: No - Renal Hx Renal Disorder: No - Endocrine/Metabolic Hx Endocrine Disorders: No - Integumentary Hx Dermatological Disorder: No - Psychiatric Hx Substance Use: No - Surgical History Hx Breast Biopsy: (CYST REMOVED) Other/Comment: FIBROIDECTOMY. Breast surgery - Anesthesia Hx Anesthesia: Yes Hx Anesthesia Reactions: No Hx Malignant Hyperthermia: No - Suicidal Assessment Feels Threatened In Home Enviroment: No Family/Social History - Physician Review Nursing Documentation Reviewed: Yes Family/Social History: No Known Family HX Smoking Status: Never Smoked Hx Alcohol Use: Yes Hx Substance Use: No Hx Substance Use Treatment: No Allergies/Home Meds Allergies/Adverse Reactions: Allergies No Known Allergies Allergy (Verified 02/17/18 09:55) Review of Systems - Physician Review All systems were reviewed & negative as marked: Yes - Review of Systems Constitutional: absent: Fevers Respiratory: absent: SOB Physical Exam - Physical Exam Narrative Physical Exam (Text): Constitutional: No acute distress. Head: Normocephalic. Atraumatic. Eyes: PERRL. ENT: Moist mucous membranes. Neck: Supple. Cardiovascular: Regular rate. Chest: No tenderness. Respiratory: Clear to auscultation bilaterally. GI: Soft. Nontender. Nondistended. Back: No CVA tenderness. Musculoskeletal: No tenderness or swelling of extremities. Skin: Erythematous, papular, non tender rash to posterior neck and upper back. Neurologic: Alert, no focal deficit. Vital Signs Reviewed: Yes Vital Signs Temp Pulse Resp BP Pulse Ox 10/05/18 11:38 98.5 F 76 18 113/72 97 Temperature: Afebrile Blood Pressure: Normal Pulse: Regular Respiratory Rate: Normal Appearance: Positive for: Well-Appearing, Non-Toxic, Comfortable Pain Distress: None Mental Status: Positive for: Alert and Oriented X 3 Medical Decision Making ED Course and Treatment: 10/05/18 12:02 Impression: A 43 year old female presents to the emergency department with a complaint of 3 day duration rash. Plan: -- Reassess and disposition Progress Notes: 10/05/18 12:03: Recommended Benadryl and Pepcid. Patient is in no acute distress. I have discussed the results and plan with the patient, who expresses understanding. Patient in agreement with plan to be discharged home. Patient is stable for discharge. Patient was instructed to follow up with physician or return if symptoms worsen or new concerning symptoms arise. Instructed patient to report the the emergency department immediately for any difficulty breathing. - Scribe Statement The provider has reviewed the documentation as recorded by the Ritaibyael Peralta Provider Scribe Attestation: All medical record entries made by the Scribe were at my direction and personally dictated by me. I have reviewed the chart and agree that the record accurately reflects my personal performance of the history, physical exam, medical decision making, and the department course for this patient. I have also personally directed, reviewed, and agree with the discharge instructions and disposition. Disposition/Present on Arrival - Present on Arrival Any Indicators Present on Arrival: No History of DVT/PE: No History of Uncontrolled Diabetes: No Urinary Catheter: No History of Decub. Ulcer: No History Surgical Site Infection Following: None - Disposition Have Diagnosis and Disposition been Completed?: Yes Diagnosis: Hives Disposition: HOME/ ROUTINE Disposition Time: 11:56 Patient Plan: Discharge Condition: GOOD Discharge Instructions (ExitCare): Hives Prescriptions: DiphenhydrAMINE [Benadryl] 2 cap PO Q8 #25 cap Famotidine [Pepcid] 1 tab PO BID #14 tab Forms: [facility] (Spanish)
== END 2018-10-05 12:31 | disposition home or self-care (01) ==
LOC: ED 11:31
DX: L50.9 Urticaria, unspecified (principal)